=== PATIENT | female | born 1970 | race Hispanic/Latino ===

== ENCOUNTER → 2017-11-15 09:41 | Outpatient (CLI) | payer OTHER, SELFPAY ==
--- NOTE | 2017-11-15 | DI.MG.S_ITS ---
BILATERAL DIGITAL SCREENING MAMMOGRAM 3D/2D WITH CAD: 11/15/2017 CLINICAL: Routine screening. Family history of breast cancer. Comparison is made to exams dated: 11/10/2013 mammogram and 11/27/2004 [facility]. The tissue of both breasts is heterogeneously dense. This may lower the sensitivity of mammography. Current study was also evaluated with a Computer Aided Detection (CAD) system. No significant masses, calcifications, or other findings are seen in either breast. There has been no significant interval change. IMPRESSION: NEGATIVE There is no mammographic evidence of malignancy. A 1 year screening mammogram is recommended. This exam was interpreted at Station ID: [id number]. NOTE: For mammograms, a report in lay terms will be sent to the patient. Approximately 15% of breast malignancies will not be visualized mammographically. In the management of a palpable breast mass, a negative mammogram must not discourage biopsy of a clinically suspicious lesion. Electronically Signed By: Nir martin/wallace:11/17/2017 09:27:38 letter sent: Normal Exam ACR BI-RADS Category 1: Negative 3341F
== END ==
PROVIDERS: Family Provider Family Medicine; PCP Family Medicine; Visit Provider Family Medicine
DX: Z12.31 Encounter for screening mammogram for malignant neoplasm of breast (principal); Z80.3 Family history of malignant neoplasm of breast
CPT/HCPCS: 77063; 77067

== ENCOUNTER → 2018-07-23 11:42 | Outpatient (CLI) | payer OTHER, SELFPAY ==
[2018-07-23 12:08] LABS: Add Manual Diff / Slide Review NO; Basophils Absolute Auto 100 /uL (0-100); Basophils Percent Auto 1.9 % (0-2); Eosinophils Absolute Auto 100 /uL (0-450); Eosinophils Percent Auto 3.2 % (2-4); Hematocrit 42.3 % (36-46); Hemoglobin 14.3 g/dL (12.0-16.0); Lymphocytes Absolute Auto 1200 /uL (1100-4500); Lymphocytes Percent Auto 30.9 % (25-40); Mean Corpuscular HGB Conc 33.9 % (30-36); Mean Corpuscular Hemoglobin 29.8 PG (26-34); Mean Corpuscular Volume 87.9 fL (80-100); Monocytes Absolute Auto 300 /uL (0-900); Monocytes Percent Auto 8.4 % (3-14); Neutrophils Absolute Auto 2200 /uL (1500-7000); Neutrophils Percent Auto 55.6 % (50-75); Platelet Count 314 X10^3/uL (150-400); Red Blood Cell Count 4.81 X10^6/uL (4.0-5.2); Red Cell Distribution Width 13.8 % (11.6-14.8); White Blood Cell Count 3.9 X10^3/uL (4.5-11.0)
[2018-07-23 12:50] LABS: Alanine Aminotransferase 65 IU/L (9-52); Albumin 5.2 g/dL (3.5-5.0); Albumin Globulin Ratio 1.7 (1.0-2.8); Alkaline Phosphatase 61 U/L (38-126); Aspartate Aminotransferase 41 IU/L (14-36); BUN Creatinine Ratio 18.3 (6-22); Bilirubin Total 0.3 mg/dL (0.2-1.3); Blood Urea Nitrogen 11 mg/dL (7-17); Calcium 10.2 mg/dL (8.4-10.2); Carbon Dioxide 22 mmol/L (22-32); Chloride 102 mmol/L (98-107); Cholesterol 220 mg/dL (140-199); Estimated Glomerular Filt Rate > 60.0 mL/min (>60); Globulin 3.1 g/dL (1.7-4.1); Glucose 89 mg/dL (70-100); HDL Cholesterol 56 mg/dL (40-60); HEMOLYSIS < 15 (0-50); LDL Cholesterol Calculated 146 mg/dL (<100); Potassium 4.9 mmol/L (3.4-5.1); Sodium 138 mmol/L (137-145); Total Protein 8.3 g/dL (6.3-8.2); Triglycerides 88 mg/dL (35-150)
[2018-07-23 13:02] LABS: Free T3, Triiodothyronine Free 3.98 pg/mL (2.77-5.27); Free T4, Direct Thyroxine 1.86 ng/dL (0.78-2.19)
[2018-07-23 13:16] LABS: Thyroid Stimulating Hormone 0.06 uIU/mL (0.47-4.68)
== END ==
PROVIDERS: PCP Family Medicine; Visit Provider Family Medicine
DX: E03.9 Hypothyroidism, unspecified (principal); R00.2 Palpitations; E78.5 Hyperlipidemia, unspecified
CPT/HCPCS: 36415; 80053; 80061; 84439; 84443; 84481; 85025

== ENCOUNTER → 2018-08-26 13:54 | Outpatient (CLI) | payer OTHER, SELFPAY ==
--- NOTE | 2018-09-11 14:34 | P.HOLT.S_ITS ---
Windows Systems Administrator Report Referral & Results Date Patient Seen: 08/26/18 Requesting provider: Roseanne Abrams Indication: Palpitations Duration of monitoring (days): 7 Diary information: For patient diary entries associated with sinus rhythm 3 patient triggered events associated with sinus rhythm and PVCs Data: Minimum heart rate identified was 53 beats per minute at 04:17 on 08/31/2018 Maximum heart rate was 169 beats per minute at 10:29 on 08/30/2018 Less 1% of identified beats were either supraventricular ventricular ectopic in origin Impression: This monitor shows evidence of rare PACs and PVCs. Patient's symptomatic events might be associated with PVCs based on a single patient tr iggered event Clinical correlation suggested
== END ==
PROVIDERS: Family Provider Family Medicine; PCP Family Medicine; Visit Provider Family Medicine
DX: R00.2 Palpitations (principal)
CPT/HCPCS: 0296T; 0298T

== ENCOUNTER → 2018-10-05 10:04 | Outpatient (CLI) | payer OTHER, SELFPAY ==
[2018-10-05 10:41] LABS: Add Manual Diff / Slide Review NO; Basophils Absolute Auto 100 /uL (0-100); Basophils Percent Auto 0.9 % (0-2); Eosinophils Absolute Auto 300 /uL (0-450); Eosinophils Percent Auto 4.7 % (2-4); Hematocrit 41.8 % (36-46); Lymphocytes Absolute Auto 2100 /uL (1100-4500); Lymphocytes Percent Auto 32.1 % (25-40); Mean Corpuscular HGB Conc 33.5 % (30-36); Mean Corpuscular Hemoglobin 29.9 PG (26-34); Mean Corpuscular Volume 89.1 fL (80-100); Monocytes Absolute Auto 500 /uL (0-900); Monocytes Percent Auto 7.3 % (3-14); Neutrophils Absolute Auto 3700 /uL (1500-7000); Platelet Count 343 X10^3/uL (150-400); Red Blood Cell Count 4.69 X10^6/uL (4.0-5.2); White Blood Cell Count 6.7 X10^3/uL (4.5-11.0)
[2018-10-05 11:16] LABS: Alanine Aminotransferase 44 IU/L (9-52); Albumin 4.6 g/dL (3.5-5.0); Albumin Globulin Ratio 1.6 (1.0-2.8); Alkaline Phosphatase 63 U/L (38-126); Aspartate Aminotransferase 29 IU/L (14-36); BUN Creatinine Ratio 14.3 (6-22); Bilirubin Total 0.2 mg/dL (0.2-1.3); Blood Urea Nitrogen 10 mg/dL (7-17); Calcium 10.2 mg/dL (8.4-10.2); Carbon Dioxide 23 mmol/L (22-32); Chloride 104 mmol/L (98-107); Cholesterol 257 mg/dL (140-199); Estimated Glomerular Filt Rate > 60.0 mL/min (>60); Globulin 2.9 g/dL (1.7-4.1); Glucose 92 mg/dL (70-100); HDL Cholesterol 59 mg/dL (40-60); HEMOLYSIS < 15 (0-50); LDL Cholesterol Calculated 170 mg/dL (<100); Potassium 4.9 mmol/L (3.4-5.1); Sodium 137 mmol/L (137-145); Total Protein 7.5 g/dL (6.3-8.2); Triglycerides 142 mg/dL (35-150)
[2018-10-05 11:43] LABS: TSH w/ Reflex to FT4 2.45 uIU/mL (0.47-4.68)
== END ==
PROVIDERS: PCP Family Medicine; Visit Provider Family Medicine
DX: Z00.00 Encounter for general adult medical examination without abnormal findings (principal); E03.9 Hypothyroidism, unspecified; R94.5 Abnormal results of liver function studies
CPT/HCPCS: 36415; 80053; 80061; 84443; 85025

== ENCOUNTER → 2019-05-25 17:45 | Outpatient (CLI) | payer OTHER, SELFPAY ==
--- NOTE | 2019-05-25 17:48 | DI.MG.S_ITS ---
BILATERAL DIGITAL SCREENING MAMMOGRAM 3D/2D WITH CAD: 05/25/2019 CLINICAL: Routine screening. Family history of breast cancer. Comparison is made to exams dated: 11/15/2017 mammogram, 11/10/2013 mammogram, and 11/27/2004 mammogram - [facility]. There are scattered fibroglandular elements in both breasts. Current study was also evaluated with a Computer Aided Detection (CAD) system. No significant masses, calcifications, or other findings are seen in either breast. There has been no significant interval change. IMPRESSION: NEGATIVE There is no mammographic evidence of malignancy. A 1 year screening mammogram is recommended. This exam was interpreted at Station ID: [id number]. NOTE: For mammograms, a report in lay terms will be sent to the patient. Approximately 15% of breast malignancies will not be visualized mammographically. In the management of a palpable breast mass, a negative mammogram must not discourage biopsy of a clinically suspicious lesion. Electronically Signed By: Baldev sosa/wallace:05/26/2019 07:58:34 letter sent: Normal Exam ACR BI-RADS Category 1: Negative 3341F
== END ==
PROVIDERS: PCP Family Medicine; Visit Provider Family Medicine
DX: Z12.31 Encounter for screening mammogram for malignant neoplasm of breast (principal); Z80.3 Family history of malignant neoplasm of breast
CPT/HCPCS: 77063; 77067

== ENCOUNTER → 2019-08-01 13:29 | Outpatient (CLI) | payer OTHER, SELFPAY ==
--- NOTE | 2019-08-01 13:31 | DI.RAD.S_ITS ---
PROCEDURE: XR KNEE LT 3V INDICATIONS: l knee pain TECHNIQUE: 3 views of the knee were acquired. COMPARISON: None. FINDINGS: Bones: No fractures or dislocations. No suspicious bony lesions. Soft tissues: No joint effusion. No suspicious soft tissue calcifications. IMPRESSION: No definite acute fracture. No osseous lesion. If clinical symptoms and/or suspicion for pathology persist, repeat short interval plain film evaluation, or advanced imaging (e.g., CT, MRI, or bone scan) are recommended for further assessment. Dictated by: Fam Magana M.D. on 08/01/2019 at 12:58 Approved by: Fam Magana M.D. on 08/01/2019 at 12:59
== END ==
PROVIDERS: PCP Family Medicine; Referring Provider Physician Assistant; Visit Provider Physician Assistant
DX: M25.562 Pain in left knee (principal)
CPT/HCPCS: 73562

== ENCOUNTER → 2019-08-05 17:28 | Outpatient (CLI) | payer OTHER, SELFPAY ==
--- NOTE | 2019-08-05 17:31 | DI.MRI.S_ITS ---
PROCEDURE: MR KNEE LT WO CON INDICATIONS: left knee instability TECHNIQUE: Noncontrast sagittal PD fast spin echo and T2 fast spin echo with fat saturation, sagittal 3-D FLASH with fat saturation; coronal T1 spin echo and PD fast spin echo with fat saturation, and axial PD fast spin echo with fat saturation through the knee. COMPARISON: None. FINDINGS: Image quality: Excellent. Menisci: Medial meniscus intact. There is T2 hyperintensity in signal change seen at the posterolateral meniscocapsular junction for example image 23/8 raising the possibility of meniscocapsular separation. Remainder of the lateral meniscus appears grossly intact although there is slight partial extrusion of the body. Cruciate ligaments: Disrupted appearance of the proximal ACL in keeping with high-grade partial versus complete rupture (image 16/8) Posterior cruciate ligament appears intact. Medial structures: There is high-grade MCL sprain, possibly complete rupture seen on image 19/11 (although thought to be less likely), and associated thickening and T2 hyperintensity. Adjacent soft tissue edema. Pes anserinus tendons appear grossly unremarkable. Semimembranosus tendon appears intact. Lateral structures: The lateral collateral ligament intact. Biceps femoris tendon appears intact. Popliteus tendon grossly unremarkable. Iliotibial band appears intact. Anterior structures: Quadriceps tendon intact. Medial and lateral patellofemoral ligaments intact. There is mild patellar tendinopathy. Prepatellar and superficial infrapatellar subcutaneous edema/fluid. Bones and cartilage: Marrow contusions involving the mid lateral femoral condyle, posterolateral tibial plateau, and posteromedial tibial plateau No discrete fracture line seen. Within the medial compartment, no focal cartilage defect Within the lateral compartment, no focal cartilage defect Within the patellofemoral compartment, no focal cartilage defect Joint space: Large joint effusion. No Serna's cyst. No specific evidence of intra-articular loose body. IMPRESSION: Multiple acute marrow contusions as detailed above in keeping with pivot shift mechanism of injury, with contrecoup lesion. High-grade versus complete rupture of the anterior cruciate ligament (proximal segment) Abnormal signal change and T2 hyperintensity at the posterolateral meniscocapsular junction raising possibility of meniscocapsular separation. High-grade MCL sprain (complete rupture thought to be less likely) with adjacent soft tissue edema Patellar tendinopathy and adjacent fluid/edema Large joint effusion Dictated by: Joe Muro M.D. on 08/06/2019 at 8:09 Approved by: Joe Muro M.D. on 08/06/2019 at 8:21
== END ==
PROVIDERS: PCP Family Medicine; Referring Provider Family Medicine; Visit Provider Family Medicine
DX: M25.362 Other instability, left knee (principal); S86.912A Strain of unspecified muscle(s) and tendon(s) at lower leg level, left leg, initial encounter; S83.412A Sprain of medial collateral ligament of left knee, initial encounter; M25.462 Effusion, left knee; M67.962 Unspecified disorder of synovium and tendon, left lower leg; X58.XXXA Exposure to other specified factors, initial encounter
CPT/HCPCS: 73721

== ENCOUNTER 2019-09-03 08:15 | Outpatient (RCR) | payer OTHER, SELFPAY ==
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
--- NOTE | 2019-08-24 12:19 | PT.OTN ---
Current Diagnoses Sprain of medial collateral ligament of left knee, initial encounter (08/24/19) Sprain of anterior cruciate ligament of left knee, initial encounter (08/24/19) Physical Therapy Treatment Note PT-OP-A Visit Information Start: 08/19/19 07:31 Freq: Status: Active Protocol: Document 08/24/19 07:30 EG (Rec: 08/24/19 11:16 EG [id number]) Out-Patient Physical Therapy Visit Information Visit Information Visit Type Treatment Note Visit Note Oswald Visit Start Time 07:30 Visit Stop Time 08:15 Total Visit Minutes 45 Visit Number 2 PT-OP-B Current Condition Start: 08/19/19 07:31 Freq: Status: Active Protocol: Document 08/19/19 07:32 MB (Rec: 08/19/19 08:19 MB [id number]) Current Condition History of Current Condition Onset Date 07/31/2019 History of Current Condition On 07/31/2019, pt was getting into her moving car and her right leg was in and she fell on the inside of her left knee . She heard a popping. L knee MRI on 08/05/2019 reveals ACL tear, high-grade MCL strain and other findings. She saw Dr. Davis, orthopedist, who recommended PT. She was put in pop shelf brace that bends. She returns to see him 09/02/2019. She does not know how long she is supposed to wear the brace. She wears it during the day. She works from home mostly. She has been icing and elevating 3x/day. Pt reports 2-3/10 pain at it's worse in left knee. It got worse with sitting all day yesterday in meetings. It was aching and nagging all day. She is sleeping okay. She does feel like her pain is getting better. She has 3 stairs to get up to her office at home. Treatment Goals Patient/Caregiver Goals Pt's goals for PT are to be able to do what she could before such as walking 2 miles a day, gait speed, stretching and normal exercises. PT-OP-C Subjective Start: 08/19/19 07:31 Freq: Status: Active Protocol: Document 08/24/19 07:30 EG (Rec: 08/24/19 11:16 EG [id number]) OP-PT Subjective Patient Comments Patient Comments Patient reported that she has a 2-3/10 pain and a 5/10 feeling of unsteadiness. She is unsure of how often she should wear her brace at this time. She brought her tape today. Mostly, she is afraid of what she can and cannot do because she doesn't want to hurt her knee anymore. She also reports that she has been doing her exercises everyday. PT-OP-D Balance Start: 08/19/19 07:31 Freq: Status: Active Protocol: Document 08/19/19 07:32 MB (Rec: 08/19/19 15:26 MB [id number]) Balance Tests Romberg Romberg EC and EO at least 30 sec Single Limb Standing Single Limb- Right 30 sec Single Limb- Left Deferred d/t pain PT-OP-G Mobility & Gait Start: 08/19/19 07:31 Freq: Status: Active Protocol: Document 08/19/19 07:32 MB (Rec: 08/19/19 15:26 MB [id number]) OP Gait Assessment Comments Gait Comments Pt has abnormal gait with flexible left knee brace donned. She favors the left leg, decreased step-length and foot clearance PT-OP-K Range of Motion Start: 08/19/19 07:31 Freq: Status: Active Protocol: Document 08/19/19 07:32 MB (Rec: 08/19/19 15:26 MB [id number]) Knee Goniometric Range of Motion Knee Left Knee ROM WFL No Patient Position Supine Flexion Active (degrees) 65 Extension Active (degrees) 10 Right Knee ROM WFL Yes Patient Position Supine Flexion Active (degrees) 125 Extension Active (degrees) 0 PT-OP-M Strength Start: 08/19/19 07:31 Freq: Status: Active Protocol: Document 08/19/19 07:32 MB (Rec: 08/19/19 15:26 MB [id number]) Hip Strength Hip Manual Muscle Testing Left Comments MMT deferred d/t left knee pain Right Flexion (L2) 5 Normal Abduction 3+ Fair+ Knee Strength Knee Manual Muscle Testing Left Comments MMT not performed d/t pain and injury, pt cannot perform SLR Right Flexion (S2) 5 Normal Extension (L3) 5 Normal Ankle/Foot Strength Ankle and Foot Manual Muscle Testing Left Dorsiflexion (L4) 5 Normal Comments Great toe extension 5/5 Right Dorsiflexion (L4) 5 Normal Comments Great toe extension 5/5 PT-OP-Q Treatments Start: 08/19/19 07:31 Freq: Status: Active Protocol: Document 08/24/19 07:30 EG (Rec: 08/24/19 11:16 EG [id number]) Cardio Equipment Recumbent Bicycle Duration (Minutes) 4 Other Full cycle not done Therapeutic Exercises Supine Exercises Prolonged knee extension Supine Exercise Name Prolonged knee extension stretch Side left Equipment Used towel roll Reps/Minutes 2 min Comments given to do for HEP AP, HS, QS and GS Supine Exercise Name AP/HS curl/QS and GS Side left Equipment Used towel roll Reps/Minutes 10x each Comments instruction on correct performance of QS Standing Exercises Heel Raise Standing Exercise Name Standing Heel Raise Side bilateral Equipment Used rail for support Reps/Minutes 2x10 Comments given as HEP Mini Squats Standing Exercise Name Mini Squats Side bilateral Equipment Used rail for support Reps/Minutes 2x10 Comments given as HEP Manual Therapy Treatment Joint Mobilizations Patellar mobilization Joint Patellar mobilization Direction Superior/Inferior Grade I Body Position Supine Reps/Duration 4 min Taping Patella Stabilization Body Location L knee Treatment Focus Stabilization Type of Tape Kinesio Tape Skin Inspection Slightly swollen L knee compared to R but not significant Comments Patient told to pay attention to tape in coming days and report back at next appointment. Instruction for self taping will be given then . Manual Techniques PROM knee flexion/extension Type PROM knee flexion/extension Body Location L knee Body Position Supine Reps/Duration 5 min PT-OP-T Assessment and Plan Start: 08/19/19 07:31 Freq: Status: Active Protocol: Document 08/24/19 07:30 EG (Rec: 08/24/19 11:16 EG [id number]) Physical Therapy Assessment Goals 5 [place] Cleaner Goal (LTG) Pt will perform progressive HEP with I including flexibility, strengthening and balance exercises to improve range of motion and strength by 10/18/2019. LTG Duration 8 weeks 4 Correction Goal (LTG) Pt will gait train at least 1700 feet in 6 minutes without AD or brace to prepare for return to 2 mile walks by 10/17. LTG Duration 8 weeks 3 [place] Cleaner Goal (LTG) Pt will report a 75% improvement in left knee pain to improve quality of life by 10/18/2019. LTG Duration 8 weeks 2 [place] Cleaner Goal (LTG) Pt will present with improved AROM left knee from 0-110 deg to improve sit to stand ability by 10/18/2019. LTG Duration 8 weeks 1 Correction Goal (LTG) Pt will present with an improved LE functional index score to reflect no more than 25% impairment to allow her to return to her previous level of active lifestyle by 2019. LTG Duration 8 weeks Assessment Summary Assessment Patient tolerated treatment well today. ROM is still limited in both flexion and extension and patient is guarded with PROM flexion. Patient was educated on importance of increasing ROM and that this will not hurt her knee but is dictated on patient tolerance. Patient was also given standing exercises to continue at home to help increase LE strength. Continue to work on ROM and quadricep strengthening. Physical Therapy Plan Frequency and Duration Frequency of Treatment 2x/Week Duration of Treatment 8 weeks Plan of Care Start Date 08/19/19 Plan of Care End Date 10/18/19 Next Visit Focus/Plan Next Note Type Treatment Note Next Visit Plan Assess how taping was this past appointment. Consider teaching kinesiotaping to support left knee this visit depending on tolerance of tape . Focus on increasing ROM. Lucille Becerra, JANNY, supervised all treatment performed by, and agreed with the plan of care, as performed by Comfort Blanc, WOODROW.
--- NOTE | 2019-08-26 08:14 | PT.OTN ---
Current Diagnoses Sprain of medial collateral ligament of left knee, initial encounter (08/26/19) Sprain of anterior cruciate ligament of left knee, initial encounter (08/26/19) Physical Therapy Treatment Note PT-OP-A Visit Information Start: 08/19/19 07:31 Freq: Status: Active Protocol: Document 08/26/19 07:28 MB (Rec: 08/26/19 08:14 MB [id number]) Out-Patient Physical Therapy Visit Information Visit Information Visit Type Treatment Note Visit Note Oswald Visit Start Time 07:28 Visit Stop Time 08:10 Total Visit Minutes 42 Visit Number 3 PT-OP-B Current Condition Start: 08/19/19 07:31 Freq: Status: Active Protocol: Document 08/19/19 07:32 MB (Rec: 08/19/19 08:19 MB [id number]) Current Condition History of Current Condition Onset Date 07/31/2019 History of Current Condition On 07/31/2019, pt was getting into her moving car and her right leg was in and she fell on the inside of her left knee . She heard a popping. L knee MRI on 08/05/2019 reveals ACL tear, high-grade MCL strain and other findings. She saw Dr. Davis, orthopedist, who recommended PT. She was put in pop shelf brace that bends. She returns to see him 09/02/2019. She does not know how long she is supposed to wear the brace. She wears it during the day. She works from home mostly. She has been icing and elevating 3x/day. Pt reports 2-3/10 pain at it's worse in left knee. It got worse with sitting all day yesterday in meetings. It was aching and nagging all day. She is sleeping okay. She does feel like her pain is getting better. She has 3 stairs to get up to her office at home. Treatment Goals Patient/Caregiver Goals Pt's goals for PT are to be able to do what she could before such as walking 2 miles a day, gait speed, stretching and normal exercises. PT-OP-C Subjective Start: 08/19/19 07:31 Freq: Status: Active Protocol: Document 08/26/19 07:28 MB (Rec: 08/26/19 08:14 MB [id number]) OP-PT Subjective Patient Comments Patient Comments Pt states that the KT peeled off yesterday. She did not wear her brace yesterday and did not have a lot of swelling . She is working on bending her knee more when she walks. PT-OP-D Balance Start: 08/19/19 07:31 Freq: Status: Active Protocol: Document 08/19/19 07:32 MB (Rec: 08/19/19 15:26 MB [id number]) Balance Tests Romberg Romberg EC and EO at least 30 sec Single Limb Standing Single Limb- Right 30 sec Single Limb- Left Deferred d/t pain PT-OP-G Mobility & Gait Start: 08/19/19 07:31 Freq: Status: Active Protocol: Document 08/19/19 07:32 MB (Rec: 08/19/19 15:26 MB [id number]) OP Gait Assessment Comments Gait Comments Pt has abnormal gait with flexible left knee brace donned. She favors the left leg, decreased step-length and foot clearance PT-OP-K Range of Motion Start: 08/19/19 07:31 Freq: Status: Active Protocol: Document 08/19/19 07:32 MB (Rec: 08/19/19 15:26 MB [id number]) Knee Goniometric Range of Motion Knee Left Knee ROM WFL No Patient Position Supine Flexion Active (degrees) 65 Extension Active (degrees) 10 Right Knee ROM WFL Yes Patient Position Supine Flexion Active (degrees) 125 Extension Active (degrees) 0 PT-OP-M Strength Start: 08/19/19 07:31 Freq: Status: Active Protocol: Document 08/19/19 07:32 MB (Rec: 08/19/19 15:26 MB [id number]) Hip Strength Hip Manual Muscle Testing Left Comments MMT deferred d/t left knee pain Right Flexion (L2) 5 Normal Abduction 3+ Fair+ Knee Strength Knee Manual Muscle Testing Left Comments MMT not performed d/t pain and injury, pt cannot perform SLR Right Flexion (S2) 5 Normal Extension (L3) 5 Normal Ankle/Foot Strength Ankle and Foot Manual Muscle Testing Left Dorsiflexion (L4) 5 Normal Comments Great toe extension 5/5 Right Dorsiflexion (L4) 5 Normal Comments Great toe extension 5/5 PT-OP-Q Treatments Start: 08/19/19 07:31 Freq: Status: Active Protocol: Document 08/26/19 07:28 MB (Rec: 08/26/19 08:14 MB [id number]) Cardio Equipment Recumbent Elliptical (Biodex) Duration (Minutes) 5 Resistance 1-2 Other 8 Therapeutic Exercises Standing Exercises Heel Raise Standing Exercise Name Standing Heel Raise Side bilateral Equipment Used rail for support Reps/Minutes 1x10 Mini Squats Standing Exercise Name Mini Squats Side bilateral Equipment Used rail for support Reps/Minutes 2x10 Gait Training Gait Activity With and without cane in right hand Comments 10 trials with cues to work on push-off with toe and heel strike, increase left knee extension and flexion Pre-gait exercise of rocking forward and backward with left leg in front to increase DF and knee flexion and then in back to encourage heel up Self-Care/Home Management Treatment Education Other Education Self-taping of left knee for support, black KT with c strip under patella and B I strips. PT performs and pt videos and then pt tapes herself PT-OP-T Assessment and Plan Start: 08/19/19 07:31 Freq: Status: Active Protocol: Document 08/26/19 07:28 MB (Rec: 08/26/19 08:14 MB [id number]) Physical Therapy Assessment Rehab Potential Rehabilitation Potential Good Evaluation Complexity Number of Personal Factors/Comorbidities 0 Number of Body Systems Impaired 1-2 Clinical Presentation at Evaluation Evolving Impairments Other Impairments Pt has known mechanical injury to left knee including ACL tear. It is unclear if this will heal with just conservative treatment. Goals 5 Prison Goal (LTG) Pt will perform progressive HEP with I including flexibility, strengthening and balance exercises to improve range of motion and strength by 10/18/2019. LTG Duration 8 weeks 4 Communications Clerk Goal (LTG) Pt will gait train at least 1700 feet in 6 minutes without AD or brace to prepare for return to 2 mile walks by 10/17. LTG Duration 8 weeks 3 Prison Goal (LTG) Pt will report a 75% improvement in left knee pain to improve quality of life by 10/18/2019. LTG Duration 8 weeks 2 Prison Goal (LTG) Pt will present with improved AROM left knee from 0-110 deg to improve sit to stand ability by 10/18/2019. LTG Duration 8 weeks 1 Communications Clerk Goal (LTG) Pt will present with an improved LE functional index score to reflect no more than 25% impairment to allow her to return to her previous level of active lifestyle by 2019. LTG Duration 8 weeks Assessment Summary Assessment Progressed gait exercises today as well as Biodex sitting elliptical. Pt able to make full revolution. She would like to get on bike at gym, try upright bike in future when ready. Performed gait activities today. Physical Therapy Plan Frequency and Duration Frequency of Treatment 2x/Week Duration of Treatment 8 weeks Plan of Care Start Date 08/19/19 Plan of Care End Date 10/18/19 Therapeutic Interventions Therapeutic Interventions Aquatic Therapy,Balance Training,Coordination Training ,Gait Training,Home Exercise Program,Manual Therapy, Neuromuscular Re-education, Patient/Caregiver Education, Self-Care/Home Management,Soft Tissue Mobilization,Taping, Therapeutic Activities, Therapeutic Exercises Modalities Cold Pack/Ice Massage,Electric Stimulation,Hot Packs, Ultrasound Other Therapeutic Interventions LLT Next Visit Focus/Plan Next Note Type Treatment Note Next Visit Plan Con't progression, gait and upright bike, Shane stretch
--- NOTE | 2019-09-01 08:22 | PT.OTN ---
Current Diagnoses Sprain of medial collateral ligament of left knee, initial encounter (09/01/19) Sprain of anterior cruciate ligament of left knee, initial encounter (09/01/19) Physical Therapy Treatment Note PT-OP-A Visit Information Start: 08/19/19 07:31 Freq: Status: Active Protocol: Document 09/01/19 07:31 SP (Rec: 09/01/19 10:01 SP [id number]) Out-Patient Physical Therapy Visit Information Visit Information Visit Type Treatment Note Visit Note Oswald Visit Start Time 07:31 Visit Stop Time 08:22 Total Visit Minutes 51 Visit Number 4 Number of QUIRK SANDER Visits 1 PT-OP-B Current Condition Start: 08/19/19 07:31 Freq: Status: Active Protocol: Document 08/19/19 07:32 MB (Rec: 08/19/19 08:19 MB [id number]) Current Condition History of Current Condition Onset Date 07/31/2019 History of Current Condition On 07/31/2019, pt was getting into her moving car and her right leg was in and she fell on the inside of her left knee . She heard a popping. L knee MRI on 08/05/2019 reveals ACL tear, high-grade MCL strain and other findings. She saw Dr. Davis, orthopedist, who recommended PT. She was put in pop shelf brace that bends. She returns to see him 09/02/2019. She does not know how long she is supposed to wear the brace. She wears it during the day. She works from home mostly. She has been icing and elevating 3x/day. Pt reports 2-3/10 pain at it's worse in left knee. It got worse with sitting all day yesterday in meetings. It was aching and nagging all day. She is sleeping okay. She does feel like her pain is getting better. She has 3 stairs to get up to her office at home. Treatment Goals Patient/Caregiver Goals Pt's goals for PT are to be able to do what she could before such as walking 2 miles a day, gait speed, stretching and normal exercises. PT-OP-C Subjective Start: 08/19/19 07:31 Freq: Status: Active Protocol: Document 09/01/19 07:31 SP (Rec: 09/01/19 10:01 SP [id number]) OP-PT Subjective Patient Comments Patient Comments Pt reported woke up about 2 am in alot of pain, think moved it into to much flexion but after little bit lying still felt better and went away. PT-OP-D Balance Start: 08/19/19 07:31 Freq: Status: Active Protocol: Document 08/19/19 07:32 MB (Rec: 08/19/19 15:26 MB [id number]) Balance Tests Romberg Romberg EC and EO at least 30 sec Single Limb Standing Single Limb- Right 30 sec Single Limb- Left Deferred d/t pain PT-OP-G Mobility & Gait Start: 08/19/19 07:31 Freq: Status: Active Protocol: Document 08/19/19 07:32 MB (Rec: 08/19/19 15:26 MB [id number]) OP Gait Assessment Comments Gait Comments Pt has abnormal gait with flexible left knee brace donned. She favors the left leg, decreased step-length and foot clearance PT-OP-K Range of Motion Start: 08/19/19 07:31 Freq: Status: Active Protocol: Document 08/19/19 07:32 MB (Rec: 08/19/19 15:26 MB [id number]) Knee Goniometric Range of Motion Knee Left Knee ROM WFL No Patient Position Supine Flexion Active (degrees) 65 Extension Active (degrees) 10 Right Knee ROM WFL Yes Patient Position Supine Flexion Active (degrees) 125 Extension Active (degrees) 0 PT-OP-M Strength Start: 08/19/19 07:31 Freq: Status: Active Protocol: Document 08/19/19 07:32 MB (Rec: 08/19/19 15:26 MB [id number]) Hip Strength Hip Manual Muscle Testing Left Comments MMT deferred d/t left knee pain Right Flexion (L2) 5 Normal Abduction 3+ Fair+ Knee Strength Knee Manual Muscle Testing Left Comments MMT not performed d/t pain and injury, pt cannot perform SLR Right Flexion (S2) 5 Normal Extension (L3) 5 Normal Ankle/Foot Strength Ankle and Foot Manual Muscle Testing Left Dorsiflexion (L4) 5 Normal Comments Great toe extension 5/5 Right Dorsiflexion (L4) 5 Normal Comments Great toe extension 5/5 PT-OP-Q Treatments Start: 08/19/19 07:31 Freq: Status: Active Protocol: Document 09/01/19 07:31 SP (Rec: 09/01/19 10:01 SP [id number]) Cardio Equipment Bicycle (Upright) Duration (Minutes) 8 Resistance Rocking f /b Seat Position 2 Therapeutic Exercises Supine Exercises core march Supine Exercise Name sequencial (good single) march Resistance ROM Reps/Minutes 2x5 alternate BLE Comments cued PPT and slow muscular control hs stretch Side bilateral Equipment Used strap Reps/Minutes 30 x2 Comments cued PPT awareness Prolonged knee extension Supine Exercise Name Prolonged knee extension stretch (quad set) Side left Equipment Used towel roll Reps/Minutes 2 min Comments given to do for HEP Standing Exercises calf stretch Equipment Used stairs heel drop off Reps/Minutes 30 (x3-5 reps) Comments single SLS LE cone taps Standing Exercise Name 12, 10, 2, 4, 6 o'clock Equipment Used rail support as needed Reps/Minutes 2x5 Comments cued knee aligned with Heel Raise Standing Exercise Name Standing Heel Raise Side bilateral Equipment Used rail for support Reps/Minutes 2x10 Mini Squats Standing Exercise Name Mini Squats Side bilateral Equipment Used rail for support, 18 chair tap Reps/Minutes 2x10 PT-OP-R Modalities Start: 08/19/19 07:31 Freq: Status: Active Protocol: Document 09/01/19 07:31 SP (Rec: 09/01/19 10:01 SP [id number]) Electric Stimulation Electric Stimulation L quad isometric [place] stim Body Location L quad Duration (Minutes) 10 Contraction Type Co-Contraction Cycle 10 PT-OP-T Assessment and Plan Start: 08/19/19 07:31 Freq: Status: Active Protocol: Document 09/01/19 07:31 SP (Rec: 09/01/19 10:01 SP [id number]) Physical Therapy Assessment Goals 5 Event Management Consultant Goal (LTG) Pt will perform progressive HEP with I including flexibility, strengthening and balance exercises to improve range of motion and strength by 10/18/2019. LTG Duration 8 weeks 4 Intermediate Goal (LTG) Pt will gait train at least 1700 feet in 6 minutes without AD or brace to prepare for return to 2 mile walks by 10/17. LTG Duration 8 weeks 3 Intermediate Goal (LTG) Pt will report a 75% improvement in left knee pain to improve quality of life by 10/18/2019. LTG Duration 8 weeks 2 Event Management Consultant Goal (LTG) Pt will present with improved AROM left knee from 0-110 deg to improve sit to stand ability by 10/18/2019. LTG Duration 8 weeks 1 Intermediate Goal (LTG) Pt will present with an improved LE functional index score to reflect no more than 25% impairment to allow her to return to her previous level of active lifestyle by 2019. LTG Duration 8 weeks Assessment Summary Assessment Pt responded well to HEP review and added core march supine/sit on SB/stool/ standing, heel slide with good awareness and improvement in core facilitation with no adverse reactions. Good core, challenging. Pt stated K taping helps and holding well, no need redo today. Physical Therapy Plan Frequency and Duration Frequency of Treatment 2x/Week Duration of Treatment 8 weeks Plan of Care Start Date 08/19/19 Plan of Care End Date 10/18/19 Therapeutic Interventions Therapeutic Interventions Aquatic Therapy,Balance Training,Coordination Training ,Gait Training,Home Exercise Program,Manual Therapy, Neuromuscular Re-education, Patient/Caregiver Education, Self-Care/Home Management,Soft Tissue Mobilization,Taping, Therapeutic Activities, Therapeutic Exercises Modalities Cold Pack/Ice Massage,Electric Stimulation,Hot Packs, Ultrasound Other Therapeutic Interventions LLT Next Visit Focus/Plan Next Note Type Treatment Note Next Visit Plan upright bike rocking today, cued slow movement and pause end feel. Continue POC: Assess core exercises today if tolerant progress standing. Responded well to Con't progression, gait and upright bike, Shane stretch
--- NOTE | 2019-09-03 13:29 | PT.OTN ---
Current Diagnoses Sprain of medial collateral ligament of left knee, initial encounter (09/03/19) Sprain of anterior cruciate ligament of left knee, initial encounter (09/03/19) Physical Therapy Treatment Note PT-OP-A Visit Information Start: 08/19/19 07:31 Freq: Status: Active Protocol: Document 09/03/19 08:18 LRN (Rec: 09/03/19 09:09 LRN [id number]) Out-Patient Physical Therapy Visit Information Visit Information Visit Type Treatment Note Visit Start Time 08:18 Visit Stop Time 09:06 Total Visit Minutes 48 Visit Number 5 PT-OP-B Current Condition Start: 08/19/19 07:31 Freq: Status: Active Protocol: Document 08/19/19 07:32 MB (Rec: 08/19/19 08:19 MB [id number]) Current Condition History of Current Condition Onset Date 07/31/2019 History of Current Condition On 07/31/2019, pt was getting into her moving car and her right leg was in and she fell on the inside of her left knee . She heard a popping. L knee MRI on 08/05/2019 reveals ACL tear, high-grade MCL strain and other findings. She saw Dr. Davis, orthopedist, who recommended PT. She was put in pop shelf brace that bends. She returns to see him 09/02/2019. She does not know how long she is supposed to wear the brace. She wears it during the day. She works from home mostly. She has been icing and elevating 3x/day. Pt reports 2-3/10 pain at it's worse in left knee. It got worse with sitting all day yesterday in meetings. It was aching and nagging all day. She is sleeping okay. She does feel like her pain is getting better. She has 3 stairs to get up to her office at home. Treatment Goals Patient/Caregiver Goals Pt's goals for PT are to be able to do what she could before such as walking 2 miles a day, gait speed, stretching and normal exercises. PT-OP-C Subjective Start: 08/19/19 07:31 Freq: Status: Active Protocol: Document 09/03/19 08:18 LRN (Rec: 09/03/19 09:09 LRN [id number]) OP-PT Subjective Patient Comments Patient Comments Had appt yesterday with Ortho MD, said ROM was 90 deg's. He thinks her knee will heal, but for her to be careful not to fall. Told not to wear brace unless needed. PT-OP-D Balance Start: 08/19/19 07:31 Freq: Status: Active Protocol: Document 08/19/19 07:32 MB (Rec: 08/19/19 15:26 MB [id number]) Balance Tests Romberg Romberg EC and EO at least 30 sec Single Limb Standing Single Limb- Right 30 sec Single Limb- Left Deferred d/t pain PT-OP-G Mobility & Gait Start: 08/19/19 07:31 Freq: Status: Active Protocol: Document 08/19/19 07:32 MB (Rec: 08/19/19 15:26 MB [id number]) OP Gait Assessment Comments Gait Comments Pt has abnormal gait with flexible left knee brace donned. She favors the left leg, decreased step-length and foot clearance PT-OP-K Range of Motion Start: 08/19/19 07:31 Freq: Status: Active Protocol: Document 08/19/19 07:32 MB (Rec: 08/19/19 15:26 MB [id number]) Knee Goniometric Range of Motion Knee Left Knee ROM WFL No Patient Position Supine Flexion Active (degrees) 65 Extension Active (degrees) 10 Right Knee ROM WFL Yes Patient Position Supine Flexion Active (degrees) 125 Extension Active (degrees) 0 PT-OP-M Strength Start: 08/19/19 07:31 Freq: Status: Active Protocol: Document 08/19/19 07:32 MB (Rec: 08/19/19 15:26 MB [id number]) Hip Strength Hip Manual Muscle Testing Left Comments MMT deferred d/t left knee pain Right Flexion (L2) 5 Normal Abduction 3+ Fair+ Knee Strength Knee Manual Muscle Testing Left Comments MMT not performed d/t pain and injury, pt cannot perform SLR Right Flexion (S2) 5 Normal Extension (L3) 5 Normal Ankle/Foot Strength Ankle and Foot Manual Muscle Testing Left Dorsiflexion (L4) 5 Normal Comments Great toe extension 5/5 Right Dorsiflexion (L4) 5 Normal Comments Great toe extension 5/5 PT-OP-Q Treatments Start: 08/19/19 07:31 Freq: Status: Active Protocol: Document 03/06/20 08:18 LRN (Rec: 09/03/19 09:09 LRN [id number]) Cardio Equipment Upper Body Ergometer (UBE) Duration (Minutes) 5 Seat Position 3 Height rocking f/b Other PROM L knee: 80 deg's Recumbent Elliptical (Biodex) Duration (Minutes) 5 Resistance 1-2 Seat Position 6 Gym Equipment Cable Column (Body Solid) Leg Curl Details L leg & Larry legs Resistance 20# & 30# respectively Reps/Time 10x & 15 x 2 respectively Therapeutic Exercises Supine Exercises Foot slides down wall Supine Exercise Name Foot slides down wall Reps/Minutes 10 hold x 15 Heel slides Supine Exercise Name Self assisted and active heel slides Side left Reps/Minutes 10 hold x 10 each Comments 96 deg's passive fllex. Pt moves slowly through ex. Sitting Exercises Hamstring stretch Sitting Exercise Name Hamstring stretch Side left Reps/Minutes 30 hold x 1 LAQ Sitting Exercise Name LAQ Side left Reps/Minutes 30 hold x 1 Standing Exercises Hamstring stretch Standing Exercise Name Hamstring stretch f/b QS x 10 Side left Reps/Minutes 2' calf stretch Equipment Used stairs heel drop off Reps/Minutes 30 (x3-5 reps) Comments single Mini Squats Standing Exercise Name Mini Squats Side bilateral Equipment Used rail for support, 18 chair tap Reps/Minutes 2x10 Self-Care/Home Management Treatment Education Patient Education Home Exercise Program Activities Self-Care/Home Management Activities Issued & reviewed HEP: Foot slides down wall. Reviewed previously given HEP except Iliopsoas stretch & SLS clocks. PT-OP-R Modalities Start: 08/19/19 07:31 Freq: Status: Active Protocol: Document 09/01/19 07:31 SP (Rec: 09/01/19 10:01 SP [id number]) Electric Stimulation Electric Stimulation L quad isometric Colombian stim Body Location L quad Duration (Minutes) 10 Contraction Type Co-Contraction Cycle 10/10 PT-OP-T Assessment and Plan Start: 08/19/19 07:31 Freq: Status: Active Protocol: Document 09/03/19 08:18 LRN (Rec: 09/03/19 09:09 LRN [id number]) Physical Therapy Assessment Assessment Summary Assessment Pt not familiar with HEP, stating she was given the ex but didn't review them. L knee ROM increased from 80 deg 's flex to 90 deg's active flex after therapy and visible improved gait mechanics. Physical Therapy Plan Frequency and Duration Frequency of Treatment 2x/Week Duration of Treatment 8 weeks Plan of Care Start Date 08/19/19 Plan of Care End Date 10/18/19 Next Visit Focus/Plan Next Note Type Treatment Note Next Visit Plan Cont upright bike rocking Review Iliopsoas stretch, SLS clocks, and L foot wall slide. Add HEP: hamstring curl with T-Band. Add gait training. Continue POC: Assess core exercises, if tolerant progress standing. Con't progression, gait, bike for full revolution.
--- NOTE | 2019-09-13 07:30 | PT-OP ANOTE ---
Pt called yesterday early am to cancel today's appt. CDL A DRIVER called and patient reported has a sore throat/ cold persistant for about a week but mild so hasn't followed up with a physician yet. CDL A DRIVER discussed if doesn't get better important to follow up with physician. CDL A DRIVER discussed can keep up with HEP seated, supine, can add prone hang to assist knee extension with verbal confirmation. Pt is aware of next appt 09/14 at 730 and will call day before if has to cancel for health safety for herself and others.
--- NOTE | 2019-09-16 14:01 | PT-OP ANOTE ---
PT talks with pt who states that she will cancel August appointments and keep September appointments. She has enough exercises to perform at home and will con't with these.
--- NOTE | 2019-10-09 14:18 | PT-OP ANOTE ---
PT calls pt. She is feeling a lot better. Her walking is better and she is doing her exercises. She is getting out walking better. She is interested in evisits to review her HEP.
--- NOTE | 2019-10-23 17:32 | PT-OP ANOTE ---
PT calls pt and leaves message. PT communicates that we do not know yet when clinic will reopen, that clinic hours will be limited to begin with, that therapists and patients will wear masks and that the gym situation will allow for 6 feet between patients. PT does communicate that PT has been providing manual care to patient and so pt and PT will be in nearer proximity. PT communicates that pt can decide if she wants to con't with PT when the clinic opens pending her current functional status and I with HEP.
--- NOTE | 2019-12-14 07:34 | PT.OPDS ---
Current Diagnoses Sprain of medial collateral ligament of left knee, initial encounter (09/03/19) Sprain of anterior cruciate ligament of left knee, initial encounter (09/03/19) Visit Care Team Role Provider Type Roseanne Abrams DO Attending Provider Physician Primary Care Provider Referring Provider Specialty: Family Practice Address: [address] [place] [address], [address], [address] Email: [email or web address] Visit Number Visit Number 5 Discharge Summary PT-OP-B Current Condition Start: 08/19/19 07:31 Freq: Status: Active Protocol: Document 08/19/19 07:32 MB (Rec: 08/19/19 08:19 MB [id number]) Current Condition History of Current Condition Onset Date 07/31/2019 History of Current Condition On 07/31/2019, pt was getting into her moving car and her right leg was in and she fell on the inside of her left knee . She heard a popping. L knee MRI on 08/05/2019 reveals ACL tear, high-grade MCL strain and other findings. She saw Dr. Davis, orthopedist, who recommended PT. She was put in pop shelf brace that bends. She returns to see him 09/02/2019. She does not know how long she is supposed to wear the brace. She wears it during the day. She works from home mostly. She has been icing and elevating 3x/day. Pt reports 2-3/10 pain at it's worse in left knee. It got worse with sitting all day yesterday in meetings. It was aching and nagging all day. She is sleeping okay. She does feel like her pain is getting better. She has 3 stairs to get up to her office at home. Treatment Goals Patient/Caregiver Goals Pt's goals for PT are to be able to do what she could before such as walking 2 miles a day, gait speed, stretching and normal exercises. PT-OP-C Subjective Start: 08/19/19 07:31 Freq: Status: Active Protocol: Document 09/03/19 08:18 LRN (Rec: 09/03/19 09:09 LRN [id number]) OP-PT Subjective Patient Comments Patient Comments Had appt yesterday with Ortho MD, said ROM was 90 deg's. He thinks her knee will heal, but for her to be careful not to fall. Told not to wear brace unless needed. PT-OP-D Balance Start: 08/19/19 07:31 Freq: Status: Active Protocol: Document 08/19/19 07:32 MB (Rec: 08/19/19 15:26 MB [id number]) Balance Tests Romberg Romberg EC and EO at least 30 sec Single Limb Standing Single Limb- Right 30 sec Single Limb- Left Deferred d/t pain PT-OP-G Mobility & Gait Start: 08/19/19 07:31 Freq: Status: Active Protocol: Document 08/19/19 07:32 MB (Rec: 08/19/19 15:26 MB [id number]) OP Gait Assessment Comments Gait Comments Pt has abnormal gait with flexible left knee brace donned. She favors the left leg, decreased step-length and foot clearance PT-OP-K Range of Motion Start: 08/19/19 07:31 Freq: Status: Active Protocol: Document 08/19/19 07:32 MB (Rec: 08/19/19 15:26 MB [id number]) Knee Goniometric Range of Motion Knee Left Knee ROM WFL No Patient Position Supine Flexion Active (degrees) 65 Extension Active (degrees) 10 Right Knee ROM WFL Yes Patient Position Supine Flexion Active (degrees) 125 Extension Active (degrees) 0 PT-OP-M Strength Start: 08/19/19 07:31 Freq: Status: Active Protocol: Document 08/19/19 07:32 MB (Rec: 08/19/19 15:26 MB [id number]) Hip Strength Hip Manual Muscle Testing Left Comments MMT deferred d/t left knee pain Right Flexion (L2) 5 Normal Abduction 3+ Fair+ Knee Strength Knee Manual Muscle Testing Left Comments MMT not performed d/t pain and injury, pt cannot perform SLR Right Flexion (S2) 5 Normal Extension (L3) 5 Normal Ankle/Foot Strength Ankle and Foot Manual Muscle Testing Left Dorsiflexion (L4) 5 Normal Comments Great toe extension 5/5 Right Dorsiflexion (L4) 5 Normal Comments Great toe extension 5/5 PT-OP-T Assessment and Plan Start: 08/19/19 07:31 Freq: Status: Active Protocol: Document 12/14/19 07:33 MB (Rec: 12/14/19 07:34 MB [id number]) Physical Therapy Plan Discharge Physical Therapy Discharge Reasons No Longer Attending PT Discharge Comments Pt called multiple times during and after COVID closure . She was doing well the last time this PT spoke with her. She has not scheduled further appointments despite being called. Will d/c PT.
== END 2019-12-14 07:46 ==
LOC: PHYS 08:15
PROVIDERS: PCP Family Medicine; Referring Provider Family Medicine; Visit Provider Family Medicine
DX: S83.412A Sprain of medial collateral ligament of left knee, initial encounter (principal); S83.512A Sprain of anterior cruciate ligament of left knee, initial encounter
CPT/HCPCS: 97110; 97116; 97140; 97161; 97535

== ENCOUNTER → 2020-02-12 09:55 | Outpatient (CLI) | payer OTHER, SELFPAY ==
[2020-02-12 11:06] LABS: Alanine Aminotransferase 62 IU/L (<35); Albumin 4.6 g/dL (3.5-5.0); Albumin Globulin Ratio 1.4 (1.0-2.8); Alkaline Phosphatase 71 U/L (38-126); Aspartate Aminotransferase 40 IU/L (14-36); BUN Creatinine Ratio 16.1 (6-22); Bilirubin Total 0.4 mg/dL (0.2-1.3); Blood Urea Nitrogen 9 mg/dL (7-17); Calcium 9.6 mg/dL (8.4-10.2); Carbon Dioxide 22 mmol/L (22-32); Chloride 104 mmol/L (98-107); Cholesterol 199 mg/dL (140-199); Estimated Glomerular Filt Rate > 60.0 mL/min (>60); Globulin 3.2 g/dL (1.7-4.1); Glucose 92 mg/dL (70-100); HDL Cholesterol 44 mg/dL (40-60); HEMOLYSIS < 15 (0-50); LDL Cholesterol Calculated 136 mg/dL (<100); Potassium 4.3 mmol/L (3.4-5.1); Sodium 135 mmol/L (137-145); Total Protein 7.8 g/dL (6.3-8.2); Triglycerides 97 mg/dL (35-150)
[2020-02-12 12:28] LABS: TSH w/ Reflex to FT4 0.15 uIU/mL (0.47-4.68)
[2020-02-12 12:58] LABS: Free T4, Direct Thyroxine 1.73 ng/dL (0.78-2.19)
== END ==
PROVIDERS: PCP Family Medicine; Referring Provider Family Medicine; Visit Provider Family Medicine
DX: E03.9 Hypothyroidism, unspecified (principal); E78.5 Hyperlipidemia, unspecified
CPT/HCPCS: 36415; 80053; 80061; 84439; 84443

== ENCOUNTER → 2020-08-12 08:15 | Outpatient (CLI) | payer OTHER, SELFPAY ==
[2020-08-12 09:48] LABS: Alanine Aminotransferase 22 IU/L (<35); Albumin 4.7 g/dL (3.5-5.0); Albumin Globulin Ratio 1.5 (1.0-2.8); Alkaline Phosphatase 65 U/L (38-126); Aspartate Aminotransferase 27 IU/L (14-36); BUN Creatinine Ratio 25.8 (6-22); Bilirubin Total 0.2 mg/dL (0.2-1.3); Blood Urea Nitrogen 17 mg/dL (7-17); Calcium 9.8 mg/dL (8.4-10.2); Carbon Dioxide 25 mmol/L (22-32); Chloride 107 mmol/L (98-107); Cholesterol 192 mg/dL (140-199); Estimated Glomerular Filt Rate > 60.0 mL/min (>60); Globulin 3.2 g/dL (1.7-4.1); Glucose 94 mg/dL (70-100); HDL Cholesterol 47 mg/dL (40-60); HEMOLYSIS < 15 (0-50); LDL Cholesterol Calculated 126 mg/dL (<100); Potassium 4.5 mmol/L (3.4-5.1); Sodium 137 mmol/L (137-145); Total Protein 7.9 g/dL (6.3-8.2); Triglycerides 95 mg/dL (35-150)
[2020-08-12 10:25] LABS: Vitamin D 25 Hydroxy (D3) 54.2 ng/mL (30.0-100.0)
[2020-08-12 10:39] LABS: TSH w/ Reflex to FT4 0.82 uIU/mL (0.47-4.68)
== END ==
PROVIDERS: PCP Family Medicine; Referring Provider Family Medicine; Visit Provider Family Medicine
DX: Z00.00 Encounter for general adult medical examination without abnormal findings (principal); E03.9 Hypothyroidism, unspecified; E78.5 Hyperlipidemia, unspecified; E55.9 Vitamin D deficiency, unspecified
CPT/HCPCS: 36415; 80053; 80061; 82306; 84443

== ENCOUNTER → 2020-10-07 12:57 | Outpatient (CLI) | payer OTHER, SELFPAY | PROVIDERS: PCP Family Medicine; Visit Provider Physician Assistant | DX: J02.9 Acute pharyngitis, unspecified (principal) | CPT/HCPCS: 87070 ==

== ENCOUNTER → 2020-10-14 09:46 | Outpatient (CLI) | payer OTHER, SELFPAY ==
--- NOTE | 2020-10-14 09:48 | DI.MG.S_ITS ---
BILATERAL DIGITAL SCREENING MAMMOGRAM 3D/2D WITH CAD: 10/14/2020 CLINICAL: Routine screening. Family history of breast cancer. Comparison is made to exams dated: 05/25/2019 mammogram, 11/15/2017 mammogram, and 11/10/2013 mammogram - [facility]. There are scattered fibroglandular elements in both breasts. Current study was also evaluated with a Computer Aided Detection (CAD) system. No significant masses, calcifications, or other findings are seen in either breast. There has been no significant interval change. IMPRESSION: NEGATIVE There is no mammographic evidence of malignancy. A 1 year screening mammogram is recommended. This exam was interpreted at Station ID: [id number]. NOTE: For mammograms, a report in lay terms will be sent to the patient. Approximately 15% of breast malignancies will not be visualized mammographically. In the management of a palpable breast mass, a negative mammogram must not discourage biopsy of a clinically suspicious lesion. Electronically Signed By: Curt diaz/wallace:10/16/2020 08:11:49 letter sent: Normal Exam ACR BI-RADS Category 1: Negative 3341F
== END ==
PROVIDERS: PCP Family Medicine; Referring Provider Family Medicine; Visit Provider Family Medicine
DX: Z12.31 Encounter for screening mammogram for malignant neoplasm of breast (principal); Z80.3 Family history of malignant neoplasm of breast
CPT/HCPCS: 77063; 77067

== ENCOUNTER → 2021-04-27 07:41 | Outpatient (CLI) | payer OTHER, SELFPAY ==
[2021-04-27 08:45] LABS: Alanine Aminotransferase 19 IU/L (<35); Albumin 4.5 g/dL (3.5-5.0); Albumin Globulin Ratio 1.6 (1.0-2.8); Alkaline Phosphatase 65 U/L (38-126); Aspartate Aminotransferase 24 IU/L (14-36); Bilirubin Total 0.4 mg/dL (0.2-1.3); Blood Urea Nitrogen 21 mg/dL (7-17); Calcium 9.7 mg/dL (8.4-10.2); Carbon Dioxide 23 mmol/L (22-32); Chloride 105 mmol/L (98-107); Cholesterol 228 mg/dL (140-199); Estimated Glomerular Filt Rate > 60.0 mL/min (>60); Globulin 2.8 g/dL (1.7-4.1); Glucose 92 mg/dL (70-100); HDL Cholesterol 58 mg/dL (40-60); HEMOLYSIS < 15 (0-50); LDL Cholesterol Calculated 148 mg/dL (<100); Potassium 5.1 mmol/L (3.4-5.1); Sodium 136 mmol/L (137-145); Total Protein 7.3 g/dL (6.3-8.2); Triglycerides 110 mg/dL (35-150)
[2021-04-27 08:57] LABS: Free T3, Triiodothyronine Free 3.85 pg/mL (2.77-5.27); Free T4, Direct Thyroxine 1.25 ng/dL (0.78-2.19)
[2021-04-27 09:10] LABS: Thyroid Stimulating Hormone 1.83 uIU/mL (0.47-4.68)
== END ==
PROVIDERS: PCP Family Medicine; Referring Provider Family Medicine; Visit Provider Family Medicine
DX: E03.9 Hypothyroidism, unspecified (principal); E78.5 Hyperlipidemia, unspecified
CPT/HCPCS: 80053; 80061; 84439; 84443; 84481

== ENCOUNTER → 2022-05-02 07:04 | Outpatient (CLI) | payer OTHER, SELFPAY ==
[2022-05-02 09:49] LABS: Add Manual Diff / Slide Review NO; Basophils Absolute Auto 100 /uL (0-100); Basophils Percent Auto 1.1 % (0-2); Eosinophils Absolute Auto 400 /uL (0-450); Eosinophils Percent Auto 5.6 % (2-4); Hematocrit 40.1 % (36-46); Hemoglobin 13.5 g/dL (12.0-16.0); Lymphocytes Absolute Auto 2200 /uL (1100-4500); Lymphocytes Percent Auto 34.7 % (25-40); Mean Corpuscular HGB Conc 33.7 % (30-36); Mean Corpuscular Hemoglobin 29.8 PG (26-34); Mean Corpuscular Volume 88.5 fL (80-100); Monocytes Absolute Auto 500 /uL (0-900); Monocytes Percent Auto 8.5 % (3-14); Neutrophils Absolute Auto 3200 /uL (1500-7000); Neutrophils Percent Auto 50.1 % (50-75); Platelet Count 311 X10^3/uL (150-400); Red Blood Cell Count 4.53 X10^6/uL (4.0-5.2); Red Cell Distribution Width 14.5 % (11.6-14.8); White Blood Cell Count 6.3 X10^3/uL (4.5-11.0)
[2022-05-02 10:13] LABS: Alanine Aminotransferase 46 IU/L (<35); Albumin 4.6 g/dL (3.5-5.0); Albumin Globulin Ratio 1.6 (1.0-2.8); Alkaline Phosphatase 71 U/L (38-126); Aspartate Aminotransferase 32 IU/L (14-36); BUN Creatinine Ratio 18.1 (6-22); Bilirubin Total 0.5 mg/dL (0.2-1.3); Blood Urea Nitrogen 13 mg/dL (7-17); Calcium 9.6 mg/dL (8.4-10.2); Carbon Dioxide 21 mmol/L (22-32); Chloride 105 mmol/L (98-107); Cholesterol 206 mg/dL (140-199); Estimated Glomerular Filt Rate > 60 mL/min (>60); Globulin 2.9 g/dL (1.7-4.1); Glucose 87 mg/dL (70-100); HDL Cholesterol 50 mg/dL (40-60); HEMOLYSIS < 15 (0-50); LDL Cholesterol Calculated 128 mg/dL (<100); Potassium 4.7 mmol/L (3.4-5.1); Sodium 137 mmol/L (137-145); Total Protein 7.5 g/dL (6.3-8.2); Triglycerides 142 mg/dL (35-150)
--- NOTE | 2022-05-02 13:06 | DI.MG.S_ITS ---
BILATERAL DIGITAL SCREENING MAMMOGRAM 3D/2D WITH CAD: 05/02/2022 CLINICAL: Routine screening. Family history of breast cancer. Comparison is made to exams dated: 10/14/2020 mammogram, 05/25/2019 mammogram, and 11/15/2017 mammogram - . There are scattered areas of fibroglandular density in both breasts (category b / 25%-50% glandular tissue). Current study was also evaluated with a Computer Aided Detection (CAD) system. No significant masses, calcifications, or other findings are seen in either breast. There has been no significant interval change. IMPRESSION: NEGATIVE There is no mammographic evidence of malignancy. A 1 year screening mammogram is recommended. Based on the Tyrer Cuzick model (a risk assessment model) the patient's lifetime risk is 8.3% and her 10 year risk is 2.0%. According to the ACR, ACS, and NCCN guidelines, an annual breast MRI exam along with mammogram is recommended if the patient's lifetime risk is 20% or greater. This exam was interpreted at Station ID: [id number]. NOTE: For mammograms, a report in lay terms will be sent to the patient. Approximately 15% of breast malignancies will not be visualized mammographically. In the management of a palpable breast mass, a negative mammogram must not discourage biopsy of a clinically suspicious lesion. Electronically Signed By: Fidel anguiano/wallace:05/03/2022 10:33:52 letter sent: Normal Exam ACR BI-RADS Category 1: Negative 3341F
== END ==
PROVIDERS: PCP Nurse Practitioner; Referring Provider Nurse Practitioner; Visit Provider Nurse Practitioner
DX: Z12.31 Encounter for screening mammogram for malignant neoplasm of breast (principal); Z00.00 Encounter for general adult medical examination without abnormal findings; Z80.3 Family history of malignant neoplasm of breast
CPT/HCPCS: 36415; 77063; 77067; 80053; 80061; 84443; 85025

== ENCOUNTER → 2023-06-28 13:03 | Outpatient (CLI) | payer OTHER, SELFPAY ==
--- NOTE | 2023-06-28 13:07 | DI.MG.S_ITS ---
BILATERAL DIGITAL SCREENING MAMMOGRAM 3D/2D WITH CAD: 06/28/2023 CLINICAL: Routine screening. Family history of breast cancer. Comparison is made to exams dated: 05/02/2022 mammogram, 10/14/2020 mammogram, and 05/25/2019 mammogram - [facility]. There are scattered areas of fibroglandular density in both breasts (category b / 25%-50% glandular tissue). Current study was also evaluated with a Computer Aided Detection (CAD) system. There is a possible developing oval equal density focal asymmetry in the right breast at 9 o'clock middle depth. This is more prominent. No other significant masses, calcifications, or other findings are seen in either breast. IMPRESSION: INCOMPLETE: NEEDS ADDITIONAL IMAGING EVALUATION The possible developing oval equal density focal asymmetry in the right breast resembles a cyst or a lymph node and is indeterminate. Additional views with possible ultrasound are recommended. Based on the Tyrer Cuzick model (a risk assessment model) the patient's lifetime risk is 8.3% and her 10 year risk is 2.1%. According to the ACR, ACS, and NCCN guidelines, an annual breast MRI exam along with mammogram is recommended if the patient's lifetime risk is 20% or greater. This exam was interpreted at Station ID: [id number]. NOTE: For mammograms, a report in lay terms will be sent to the patient. Approximately 15% of breast malignancies will not be visualized mammographically. In the management of a palpable breast mass, a negative mammogram must not discourage biopsy of a clinically suspicious lesion. Electronically Signed By: Baldev Manzanares M.D. at/:07/01/2023 08:46:26 letter sent: Additional Imaging Needed ACR BI-RADS Category 0: Incomplete 3340F
== END ==
LOC: MAMMO 13:04
PROVIDERS: PCP Nurse Practitioner; Referring Provider Nurse Practitioner; Visit Provider Nurse Practitioner
DX: Z12.31 Encounter for screening mammogram for malignant neoplasm of breast (principal); Z80.3 Family history of malignant neoplasm of breast
CPT/HCPCS: 77063; 77067

== ENCOUNTER → 2023-07-21 11:55 | Outpatient (CLI) | payer OTHER, SELFPAY ==
--- NOTE | 2023-07-21 | DI.MG.S_ITS ---
UNILATERAL RIGHT DIGITAL DIAGNOSTIC MAMMOGRAM 3D/2D WITH ADDITIONAL VIEWS: 07/21/2023 CLINICAL: Additional evaluation requested from prior study. Comparison is made to exams dated: 06/28/2023 mammogram, 05/02/2022 mammogram, and 10/14/2020 mammogram - [facility]. There are scattered areas of fibroglandular density in the right breast (category b / 25%-50% glandular tissue). The previously described possible developing 0.6 cm oval equal density focal asymmetry in the right breast at 9 o'clock middle depth is seen in additional views. This is more prominent. No other significant masses or calcifications are seen in the breast. IMPRESSION: INCOMPLETE: NEEDS ADDITIONAL IMAGING EVALUATION The possible developing 0.6 cm oval equal density focal asymmetry in the right breast resembles a cyst or a lymph node and is indeterminate. An ultrasound is recommended for further evaluation and is scheduled to immediately follow this examination. Based on the Tyrer Cuzick model (a risk assessment model) the patient's lifetime risk is 8.3% and her 10 year risk is 2.1%. According to the ACR, ACS, and NCCN guidelines, an annual breast MRI exam along with mammogram is recommended if the patient's lifetime risk is 20% or greater. This exam was interpreted at Station ID: [id number]. NOTE: For mammograms, a report in lay terms will be sent to the patient. Approximately 15% of breast malignancies will not be visualized mammographically. In the management of a palpable breast mass, a negative mammogram must not discourage biopsy of a clinically suspicious lesion. Electronically Signed By: Baldev Manzanares M.D. aty/:07/21/2023 12:37:29 ACR BI-RADS Category 0: Incomplete 3340F
--- NOTE | 2023-07-21 11:57 | DI.US.S_ITS ---
ULTRASOUND OF RIGHT BREAST AND AXILLA: 07/21/2023 CLINICAL: Patient returns today to evaluate a focal asymmetry in the right breast. Comparison is made to exams dated: 07/21/2023 mammogram, 06/28/2023 mammogram, 05/02/2022 mammogram, 10/14/2020 mammogram, 05/25/2019 mammogram, and 11/15/2017 mammogram - [facility]. Color flow and real-time ultrasound of the right breast axilla were performed. Bruner scale images of the real-time examination were reviewed. There are lymph nodes in the right axilla. There are multiple oval masses with circumscribed margins in the right breast superior lateral quadrant middle depth 8 cm from the nipple. These oval masses are hypoechoic. These correlate with mammography findings. Color flow imaging demonstrates that there is vascularity present. No other significant abnormalities were seen sonographically in the right axilla. IMPRESSION: PROBABLY BENIGN The multiple oval masses in the right breast resemble lymph nodes and are probably benign. A follow-up right mammogram and a right ultrasound in 6 months is recommended to demonstrate stability. Findings and recommendations were conveyed to the patient during today's evaluation. This exam was interpreted at Station ID: [id number]. Electronically Signed By: Baldev Manzanares M.D. aty/:07/21/2023 15:58:08 letter sent: Followup Recommended Ultrasound BI-RADS: 3 Probably benign
== END ==
PROVIDERS: PCP Nurse Practitioner; Referring Provider Nurse Practitioner; Visit Provider Nurse Practitioner
DX: R92.8 Other abnormal and inconclusive findings on diagnostic imaging of breast (principal); N63.11 Unspecified lump in the right breast, upper outer quadrant
CPT/HCPCS: 76642; 77065; G0279

== ENCOUNTER → 2023-12-08 10:18 | Outpatient (CLI) | payer OTHER, SELFPAY ==
[2023-12-08 11:07] LABS: Hemoglobin 14.4 g/dL (12.0-16.0); Mean Corpuscular HGB Conc 34.3 % (30-36); Mean Corpuscular Hemoglobin 30.1 PG (26-34); Mean Corpuscular Volume 87.8 fL (80-100); Platelet Count 345 X10^3/uL (150-400); Red Blood Cell Count 4.79 X10^6/uL (4.0-5.2); Red Cell Distribution Width 13.9 % (11.6-14.8); White Blood Cell Count 5.9 X10^3/uL (4.5-11.0)
[2023-12-08 11:34] LABS: Alanine Aminotransferase 66 IU/L (<35); Albumin Globulin Ratio 1.5 (1.0-2.8); Alkaline Phosphatase 90 U/L (38-126); Aspartate Aminotransferase 49 IU/L (14-36); BUN Creatinine Ratio 17.5 (6-22); Bilirubin Total 0.7 mg/dL (0.2-1.3); Blood Urea Nitrogen 14 mg/dL (7-17); C-Reactive Protein Quant < 0.5 mg/dL (<1.0); Calcium 10.4 mg/dL (8.4-10.2); Carbon Dioxide 26 mmol/L (22-32); Chloride 105 mmol/L (98-107); Cholesterol 304 mg/dL (140-199); Estimated Glomerular Filt Rate > 60 mL/min (>60); Globulin 3.3 g/dL (1.7-4.1); Glucose 92 mg/dL (70-100); HDL Cholesterol 69 mg/dL (40-60); HEMOLYSIS < 15 (0-50); LDL Cholesterol Calculated 209 mg/dL (<100); Sodium 139 mmol/L (137-145); Total Protein 8.3 g/dL (6.3-8.2); Triglycerides 128 mg/dL (35-150)
[2023-12-08 11:35] LABS: Rheumatoid Factor < 8.6 IU/mL (<12.0)
[2023-12-08 11:45] LABS: Free T3, Triiodothyronine Free 3.55 pg/mL (2.77-5.27); Free T4, Direct Thyroxine 1.07 ng/dL (0.78-2.19); Progesterone, Total 1.02 ng/mL
[2023-12-08 11:51] LABS: Creatinine Urine Random 29.99 mg/dL
[2023-12-08 11:58] LABS: Thyroid Stimulating Hormone 1.17 uIU/mL (0.47-4.68)
[2023-12-08 11:59] LABS: Microalbumin Urine Random < 0.6 mg/dL (0-1.6)
[2023-12-08 12:03] LABS: Testosterone 92.5 ng/dL (5.71-77.0)
[2023-12-08 13:37] LABS: Erythrocyte Sedimentation Rate 16 MM/HR (0-20)
[2023-12-08 19:01] LABS: HIV 1 & 2 Ab/Ag 4th Gen Combo NEGATIVE (NEGATIVE); Hep C Virus Ab w/Reflex Quant NEGATIVE s/c (NEGATIVE)
[2023-12-11 20:36] LABS: Estrogen 530 pg/mL (.)
== END ==
PROVIDERS: PCP Nurse Practitioner; Referring Provider Nurse Practitioner; Visit Provider Nurse Practitioner
DX: Z00.00 Encounter for general adult medical examination without abnormal findings (principal); N95.1 Menopausal and female climacteric states; R68.82 Decreased libido; R53.83 Other fatigue; Z11.4 Encounter for screening for human immunodeficiency virus [HIV]; Z11.59 Encounter for screening for other viral diseases; D89.89 Other specified disorders involving the immune mechanism, not elsewhere classified; M19.90 Unspecified osteoarthritis, unspecified site
CPT/HCPCS: 36415; 80053; 80061; 82043; 82570; 82672; 84144; 84403; 84439; 84443; 84481; 85027; 85651; 86140; 86430; 86803; 87389

== ENCOUNTER → 2024-01-19 08:53 | Outpatient (CLI) | payer OTHER, SELFPAY ==
--- NOTE | 2024-01-19 08:55 | DI.US.S_ITS ---
LIMITED ULTRASOUND OF RIGHT BREAST AND AXILLA: 01/19/2024 CLINICAL: 6 month follow-up of nodes. Comparison is made to exams dated: 01/19/2024 mammogram, 07/21/2023 ultrasound, 07/21/2023 mammogram, 06/28/2023 mammogram, and 05/02/2022 mammogram - [facility]. Color flow and real-time ultrasound of the right breast 8 o'clock, 10 o'clock, and axilla regions were performed. Bruner scale images of the real-time examination were reviewed. There is an intramammary lymph node measuring 5 mm in the right breast at 8 o'clock, 8 cm from the nipple. This finding is stable since 06/28/2023 and corresponds to the mammographic finding described at 9 o'clock middle depth. Previously seen incidental intramammary lymph nodes at 10 o'clock, 8 cm from the nipple is not visualized on current exam. IMPRESSION: BENIGN Right breast 5 mm intramammary lymph node at 8 o'clock is benign. No mammographic or sonographic evidence of malignancy. Recommend return to annual mammogram screening, which patient will be due for in May 2024. Findings and recommendations were conveyed to the patient during today's evaluation. This exam was interpreted at Station ID: [id number]. Electronically Signed By: Mariela Sanchez M.D., Ph.D. eb/:01/19/2024 09:42:01 letter sent: Normal Exam Ultrasound BI-RADS: 2 Benign
--- NOTE | 2024-01-19 08:55 | DI.MG.S_ITS ---
UNILATERAL RIGHT DIGITAL DIAGNOSTIC MAMMOGRAM 3D/2D: 01/19/2024 CLINICAL: Short term follow up. Comparison is made to exams dated: 07/21/2023 mammogram, 06/28/2023 mammogram, and 05/02/2022 mammogram - [facility]. There are scattered areas of fibroglandular density in the right breast (category b / 25%-50% glandular tissue). There is a 0.6 cm oval equal density focal asymmetry in the right breast at 9 o'clock middle depth, stable since at least May 2023. No other significant masses or calcifications are seen in the breast. IMPRESSION: INCOMPLETE: NEEDS ADDITIONAL IMAGING EVALUATION Right breast 0.6 cm oval equal density focal asymmetry at 9 o'clock, stable since at least May 2023. An ultrasound is recommended for further evaluation and is scheduled to immediately follow this examination. Based on the Tyrer Cuzick model (a risk assessment model) the patient's lifetime risk is 8.3% and her 10 year risk is 2.1%. According to the ACR, ACS, and NCCN guidelines, an annual breast MRI exam along with mammogram is recommended if the patient's lifetime risk is 20% or greater. This exam was interpreted at Station ID: [id number]. NOTE: For mammograms, a report in lay terms will be sent to the patient. Approximately 15% of breast malignancies will not be visualized mammographically. In the management of a palpable breast mass, a negative mammogram must not discourage biopsy of a clinically suspicious lesion. Electronically Signed By: Mariela Sanchez M.D., Ph.D. eb/:01/19/2024 09:25:47 ACR BI-RADS Category 0: Incomplete 3340F
== END ==
PROVIDERS: PCP Nurse Practitioner; Referring Provider Nurse Practitioner; Visit Provider Nurse Practitioner
DX: R92.8 Other abnormal and inconclusive findings on diagnostic imaging of breast (principal); R92.321 Mammographic fibroglandular density, right breast
CPT/HCPCS: 76642; 77065; G0279

== ENCOUNTER → 2024-08-07 10:07 | Outpatient (CLI) | payer OTHER, SELFPAY ==
--- NOTE | 2024-08-07 | DI.MG.S_ITS ---
BILATERAL DIGITAL SCREENING MAMMOGRAM 3D/2D WITH CAD: 08/07/2024 CLINICAL: Routine screening. Family history of breast cancer. Comparison is made to exams dated: 06/28/2023 mammogram, 05/02/2022 mammogram, and 10/14/2020 mammogram - [facility]. There are scattered areas of fibroglandular density (category b / 25%-50% glandular tissue). Current study was also evaluated with a Computer Aided Detection (CAD) system. No significant masses, calcifications, or other findings are seen in either breast. There has been no significant interval change. IMPRESSION: NEGATIVE There is no mammographic evidence of malignancy. A 1 year screening mammogram is recommended. Based on the Tyrer Cuzick model (a risk assessment model) the patient's lifetime risk is 8.4% and her 10 year risk is 2.3%. According to the ACR, ACS, and NCCN guidelines, an annual breast MRI exam along with mammogram is recommended if the patient's lifetime risk is 20% or greater. This exam was interpreted at Station ID: [id number]. NOTE: For mammograms, a report in lay terms will be sent to the patient. Approximately 15% of breast malignancies will not be visualized mammographically. In the management of a palpable breast mass, a negative mammogram must not discourage biopsy of a clinically suspicious lesion. Electronically Signed By: Mariela Sanchez M.D., Ph.D. [email or web address]:08/11/2024 07:32:46 letter sent: Normal Exam ACR BI-RADS Category 1: Negative
== END ==
PROVIDERS: PCP Nurse Practitioner Family; Referring Provider Nurse Practitioner Family; Visit Provider Nurse Practitioner Family
DX: Z12.31 Encounter for screening mammogram for malignant neoplasm of breast (principal); Z80.3 Family history of malignant neoplasm of breast
CPT/HCPCS: 77063; 77067